=== PATIENT | male | born 1970 | race Two or more races ===

== ENCOUNTER 2018-03-09 13:48 | Inpatient (IN) | payer MEDICARE ==
--- NOTE | 2018-03-09 15:51 | ED ---
Psych HPI - General Source: patient, RN notes reviewed Mode of arrival: ambulatory Limitations: no limitations <Chris Flood - Last Filed: 03/09/18 15:50> <Renan Smith - Last Filed: 03/09/18 16:00> - General Chief Complaint: Psychiatric Symptoms Stated Complaint: Mental health eval Time Seen by Provider: 03/09/18 14:30 - History of Present Illness Initial Comments: 47-year-old male presents emergency department for psychiatric evaluation. Patient states she is depressed and suicidal. Patient states this has been going on for a while. Patient denies any illicit drug use or alcohol abuse. Patient has not seen a psychiatrist recently. Patient denies any physical complaints. Patient denies any nausea and diarrhea constipation no fever no chills no URI symptoms no chest pain or shortness breath. (Chris Flood) - Related Data Home Medications Medication Instructions Recorded Confirmed No Known Home Medications 03/09/18 03/09/18 Allergies Allergy/AdvReac Type Severity Reaction Status Date / Time No Known Allergies Allergy Verified 03/09/18 15:46 Review of Systems ROS Other: All systems not noted in ROS Statement are negative. <Chris Flood - Last Filed: 03/09/18 15:50> ROS Other: All systems not noted in ROS Statement are negative. <Renan Smith - Last Filed: 03/09/18 16:00> ROS Statement: Those systems with pertinent positive or pertinent negative responses have been documented in the HPI. Past Medical History Past Medical History: No Reported History History of Any Multi-Drug Resistant Organisms: MRSA Date of last positivie culture/infection: 2005 Past Surgical History: Back Surgery, Tonsillectomy Past Psychological History: Depression Smoking Status: Never smoker Past Alcohol Use History: Daily Past Drug Use History: Marijuana <Chris Flood - Last Filed: 03/09/18 15:50> General Exam Limitations: no limitations General appearance: alert, in no apparent distress Head exam: Present: atraumatic, normocephalic, normal inspection Neck exam: Present: normal inspection. Absent: tenderness, meningismus, lymphadenopathy Respiratory exam: Present: normal lung sounds bilaterally. Absent: respiratory distress, wheezes, rales, rhonchi, stridor Cardiovascular Exam: Present: regular rate, normal rhythm, normal heart sounds. Absent: systolic murmur, diastolic murmur, rubs, gallop, clicks GI/Abdominal exam: Present: soft, normal bowel sounds. Absent: distended, tenderness, guarding, rebound, rigid Neurological exam: Present: alert, oriented X3, CN II-XII intact Psychiatric exam: Present: normal affect, normal mood Skin exam: Present: warm, dry, intact, normal color. Absent: rash <Chris Flood - Last Filed: 03/09/18 15:50> Course <Chris Flood - Last Filed: 03/09/18 15:50> <Renan Smith - Last Filed: 03/09/18 16:00> Vital Signs 03/09/18 14:17 Temperature 98.3 F Pulse Rate 95 Respiratory 18 Rate Blood Pressure 163/95 O2 Sat by Pulse 97 Oximetry - Reevaluation(s) Reevaluation #1: 03/09/18 16:00 Patient was evaluated by the psychiatric service and will be admitted for inpatient care for major depression. (Renan Smith) Disposition <Chris Flood - Last Filed: 03/09/18 15:50> <Renan Smith - Last Filed: 03/09/18 16:00> Clinical Impression: Major depression Disposition: TRANSFER TO PSYCH HOSP/UNIT Condition: Stable Referrals: Christopher Lea MD [Primary Care Provider] - 1-2 days
[2018-03-09] MEDS ORDERED: ACETAMINOPHEN TAB 325 MG TAB PO PRN (16:04)
[2018-03-09] MEDS ORDERED: MAGNESIUM HYDROXIDE 2,400 MG/10 ML CUP PO PRN (16:04)
[2018-03-09] MEDS ORDERED: ZIPRASIDONE 20 MG VIAL IM PRN (16:04)
[2018-03-09] MEDS ORDERED: MAG HYDROX/AL HYDROX/SIMETH 30 ML CUP PO PRN (16:04)
[2018-03-09] MEDS ORDERED: LORazepam 1 MG TAB PO PRN (16:04)
[2018-03-09 16:10] LABS: Amphetamine Screen,Urine Not Detected (NotDetected); Barbiturate Screen,Urine Not Detected (NotDetected); Benzodiazepines Screen,Urine Not Detected (NotDetected); Cocaine Screen,Urine Not Detected (NotDetected); Methadone Screen, Urine Not Detected (NotDetected); Opiate Screen,Urine Not Detected (NotDetected); Oxycodone Screen, Urine Not Detected (NotDetected); Phencyclidine Screen,Urine Not Detected (NotDetected); Tricyclic Antidepressant,Urine Not Detected (NotDetected); Urn Cannabinoid Scrn Detected (NotDetected)
[2018-03-09 17:20] VITALS: BMI 21.9
--- NOTE | 2018-03-09 18:19 | P.MDCNMH ---
History of Present Illness H&P Date: 03/09/18 Chief Complaint: Medical management 47-year-old male with PMH of discectomy at the L4 L5 S1 spine presents to the ED for severe depression and suicidal ideations. Patient reports chronic lower back pain, associated with his discectomy when he fell off a roof at age 18. He has undergone surgery and placement of an internal stimulator in the past. He does complain of numbness and tingling over the left lateral lower extremity. Patient states that he was initially addicted to opiates, but has weaned himself off. Pain is currently 5 out of 10 in severity. Patient reports drinking alcohol daily and smoking marijuana to control his pain. He does report drinking daily. Patient reports drinking a six pack of beer with 2 shots of liquor daily. Patient states his last drink was yesterday night, had one beer. Patient denies any withdrawal symptoms at this time. Patient denies headaches, lower extremity edema, vomiting, fever, chills, cough , chest pain, shortness of breath, palpitations, changes in bowel habits. Patient reports no changes in appetite or weight. He does however complain of chronic headaches, frontal, described as shooting and point form. He also complains of urinary frequency, but attributes them to his prostate issue. Review of Systems All systems: negative Past Medical History Past Medical History: No Reported History History of Any Multi-Drug Resistant Organisms: MRSA Date of last positivie culture/infection: 2005 MDRO Source:: hand Past Surgical History: Back Surgery, Tonsillectomy Past Psychological History: Depression Smoking Status: Never smoker Past Alcohol Use History: Daily Past Drug Use History: Marijuana Medications and Allergies Home Medications Medication Instructions Recorded Confirmed Type No Known Home Medications 03/09/18 03/09/18 History Allergies Allergy/AdvReac Type Severity Reaction Status Date / Time No Known Allergies Allergy Verified 03/09/18 17:32 Physical Exam Vitals: Vital Signs Temp Pulse Pulse Resp BP BP Pulse Ox 03/09/18 17:14 100.0 F H 03/09/18 17:02 100.0 F H 63 16 130/76 03/09/18 14:17 98.3 F 95 18 163/95 97 Intake and Output 03/09/18 03/09/18 03/09/18 06:59 14:59 22:59 Other: Weight 72.575 kg 69.4 kg General: [non toxic], [no distress], [appears at stated age] Derm: [warm], [dry] Head: [atraumatic], [normocephalic], [symmetric] Eyes: [EOMI], [no lid lag], [anicteric sclera] Mouth: [no lip lesion], [mucus membranes moist] Cardiovascular: [S1S2 reg], [no murmur], [positive DP pulse bilateral] Lungs: [CTA bilateral], [no rhonchi, no rales] , [no accessory muscle use] Abdominal: [soft], [ nontender to palpation], [no guarding], [no appreciable organomegaly] Ext: [no gross muscle atrophy], [no edema], [no contractures] Neuro: [Decreased sensation to touch over the left lateral foot and calf] Psych: [Alert], [oriented], [appropriate affect] Cranial Nerve Examination - Cranial Nerves Cranial Nerve II- Optic: Intact Cranial Nerve III- Oculomotor: Intact Cranial Nerve IV- Trochlear: Intact Cranial Nerve V- Trigeminal: Intact Cranial Nerve - Abducens: Intact Cranial Nerve VII- Facial: Intact Cranial Nerve VIII- Auditory: Intact Cranial Nerve IX- Glossopharyngeal: Intact Cranial Nerve X- Vagus: Intact Cranial Nerve XI- Accessory: Intact Cranial Nerve XII- Hypoglossal: Intact Results Labs: Abnormal Lab Results - Last 24 Hours (Table) 03/09/18 Range/Units 15:54 U Marijuana (THC) Screen Detected H (NotDetected) Assessment and Plan Assessment: Assessment and Plan 1. Lower back pain: s/p L4L5S1 discectomy. Pain management with Tylenol PRN. Will need adequate primary care follow up. 2. EtOH abuse: Appears to be heavy drinker with last drink yesterday. CIWA is negative during H&P. Ativan 1 mg PO TID PRN for agitation. CIWA protocol. MVI 1 tab PO QD, Folic acid 1 mg PO QD and Thiamine 100 mg PO QD. CIWA protocol. 3. Depression and Suicidal ideations: Management as per Psychiatry. Thank you for the consult. Please call with any additional questions.
[2018-03-10] MEDS ORDERED: NICOTINE 14MG/24HR PATCH TRANSDERM SCH (09:00)
--- NOTE | 2018-03-10 10:19 | P.HP ---
Psychiatric H&P - . H&P Date: 03/10/18 History & Physical: Allergies Allergy/AdvReac Type Severity Reaction Status Date / Time No Known Allergies Allergy Verified 03/09/18 17:32 Vital Signs Temp 97.5 F L 03/10/18 06:42 Pulse 86 03/10/18 06:42 Resp 16 03/10/18 06:42 BP 139/78 03/10/18 06:42 Pulse Ox 96 03/09/18 21:38 Intake & Output 03/09/18 03/10/18 03/10/18 18:59 06:59 18:59 Weight 69.4 kg Laboratory Last Values Urine Opiates Screen Not Detected (NotDetected) 03/09/18 15:54 Ur Oxycodone Screen Not Detected (NotDetected) 03/09/18 15:54 Urine Methadone Screen Not Detected (NotDetected) 03/09/18 15:54 Ur Propoxyphene Screen Not Detected (NotDetected) 03/09/18 15:54 Ur Barbiturates Screen Not Detected (NotDetected) 03/09/18 15:54 U Tricyclic Antidepress Not Detected (NotDetected) 03/09/18 15:54 Ur Phencyclidine Scrn Not Detected (NotDetected) 03/09/18 15:54 Ur Amphetamines Screen Not Detected (NotDetected) 03/09/18 15:54 U Methamphetamines Scrn Not Detected (NotDetected) 03/09/18 15:54 U Benzodiazepines Scrn Not Detected (NotDetected) 03/09/18 15:54 Urine Cocaine Screen Not Detected (NotDetected) 03/09/18 15:54 U Marijuana (THC) Screen Detected (NotDetected) H 03/09/18 15:54 Assessment and Plan Assessment: Chief Complaint: Psychiatric Symptoms Stated Complaint: Mental health eval Time Seen by Provider: 03/10/2018 - History of Present Illness Initial Comments: 47-year-old male presents emergency department for psychiatric evaluation. Patient states she is depressed and suicidal. Patient states this has been going on for a while. Patient denies any illicit drug use or alcohol abuse. Patient has not seen a psychiatrist recently. Patient denies any physical complaints. Patient denies any nausea and diarrhea constipation no fever no chills no URI symptoms no chest pain or shortness breath. - Related Data Home Medications Medication Instructions Recorded Confirmed No Known Home Medications 03/09/18 03/09/18 Allergies Allergy/AdvReac Type Severity Reaction Status Date / Time No Known Allergies Allergy Verified 03/09/18 15:46 Past Medical History Past Medical History: No Reported History History of Any Multi-Drug Resistant Organisms: MRSA-inflammed- on buttocks Date of last positivie culture/infection: 2005 Past Surgical History: Back Surgery, Tonsillectomy Past Psychological History: Depression Smoking Status: Never smoker Past Alcohol Use History: Daily Past Drug Use History: Marijuana daily Family history: mother-depressed; dad-dementia; older sister raped by father- PTSD without children; is a functional alcoholic and depression at times ( 12 years); 2 other wifes No college and did not finish high school-10 th grade([employer]) Musculoskeletal Examination - Abnormal/Involuntary Movements: [none Strength: [greater than antigravity (greater than/equal to 3/5) in all extremities Muscle Tone: [no impairment Gait: [grossly normal Station: [grossly normal Mental Status Examination - General Appearance: [ casual, appears stated age Speech/Language: [rapid, hesitant, halting, expressive,soft] Attitude/Behavior: [cooperative Mood: [depressed, anxious, irritable, fearful, hopelessness Affect: [ flat, incongruent, blunted constricted] Orientation: [time, person, place situation] Thought Content: [obsessions Risk Factors: [he is suicidal (ideations, plan) Perception: [wnl, paranoia Thought Processes: [concrete, circumstantial, tangential] Concentration/Attention Span: [wnl] [Per observation and interview with the patient] Recent Memory: [wnl,] Remote Memory: [wnl, ] [past events, as related history] Intelligence: [below average] [based on history, based on vocabulary, syntax, grammar, and content] Judgement: [fair] [per patient's behavior/history of present illness] Insight: [fair] [understanding severity of illness/history of present illness] Admitting Diagnosis: [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] Patient Strengths - Personal Skills: [Wanting to go to work] Achievements: [Did not finish high school no college] Steady employment/financial stability: [Currently is on social security disability for his back] Housing stability: [He is and lives in a house] Able to vocalize needs: [Able to express his needs for normalcy and less depression and anxiety] Motivation, determination, readiness for change: [He appears motivated and wants to get well and find a job] Setting and pursuing goals, hopes, dreams, aspirations: [Wants to work] Resources - social, interpersonal, monetary: [SSD] Interpersonal relationships and supports available - family, relatives, friends : [] Patient Limitations: [medication, non-compliance, pathological/unsupported environment, intellectual impairment, complicated medical illness, Initial Plan of Care: [He is admitted on a voluntary basis and placed on 15 minute checks due to his suicidal thoughts and his severe depression. He'll be evaluated by medicine, psychiatry, social work, nursing staff and occupational therapy. He will be teamed in a multidisciplinary team on a daily basis for evaluation, treatment, progress towards resolution of symptoms and disposition. He stated that 2 days ago was his last drink of alcohol and will treat him with Librium 10 mg 3 times a day, Catapres 0.1 mg 3 times a day, risperidone 0.25 mg by mouth twice a day for his paranoia. On 03/11/2018 will start antidepressant but today treating his alcohol withdrawal.] Estimated Length of Stay: [7 days] Initial Discharge Plan: [[place], referred to therapist Prognosis: [ guarded] Justification for Inpatient Hospitalization - [ agitation, anxiety, depression resulting in significant loss of functioning.] [Dangerous to self with need for controlled environment.] [Emotional or behavioral conditions and complications requiring 24 hour medical and nursing care.] [Need for special drug therapy, or other therapeutic program requiring continuous hospitalization.] [Failure of social or occupational functioning.] [Inability to meet basic life and health needs.] [ (1) Major depressive disorder without psychotic features Current Visit: Yes Status: Acute Code(s): F32.9 - MAJOR DEPRESSIVE DISORDER , SINGLE EPISODE, UNSPECIFIED SNOMED Code(s): 563789373 Time with Patient: Greater than 30
[2018-03-10 11:20] LABS: Basophils # (A) 0.1 k/uL (0-0.2); Basophils % (A) 1 %; Eosinophils # (A) 0.5 k/uL (0-0.7); Eosinophils % (A) 6 %; HCT 46.2 % (39.0-53.0); HGB 14.5 gm/dL (13.0-17.5); Lymphocytes # (A) 2.3 k/uL (1.0-4.8); Lymphocytes % (A) 28 %; MCH 27.6 pg (25.0-35.0); MCHC 31.4 g/dL (31.0-37.0); MCV 87.8 fL (80.0-100.0); Mean Platelet Volume 7.6; Monocytes # (A) 0.6 k/uL (0-1.0); Monocytes % (A) 7 %; Neutrophils # (A) 4.5 k/uL (1.3-7.7); Neutrophils % (A) 56 %; Platelet Count 279 k/uL (150-450); RBC 5.26 m/uL (4.30-5.90); WBC 8.1 k/uL (3.8-10.6)
[2018-03-10 11:29] LABS: ALT 27 U/L (21-72); AST 30 U/L (17-59); Albumin 5.2 g/dL (3.5-5.0); Alkaline Phosphatase 80 U/L (38-126); Anion Gap 13 mmol/L; Blood Urea Nitrogen 11 mg/dL (9-20); Calcium 10.4 mg/dL (8.4-10.2); Carbon Dioxide 25 mmol/L (22-30); Chloride 103 mmol/L (98-107); Cholesterol 229 mg/dL (<200); Glucose 102 mg/dL (74-99); HDL Cholesterol 102 mg/dL (40-60); LDL Cholesterol,Calculated 110 mg/dL (0-99); Potassium 4.5 mmol/L (3.5-5.1); Sodium 141 mmol/L (137-145); Total Bilirubin 1.1 mg/dL (0.2-1.3); Total Protein 8.4 g/dL (6.3-8.2); Triglycerides 83 mg/dL (<150)
[2018-03-10] MEDS: MULTIVITAMINS, THERA 1 EACH TAB PO SCH (13:16)
[2018-03-10] MEDS: FOLIC ACID 1 MG TAB PO SCH (13:16)
[2018-03-10] MEDS: THIAMINE 100 MG TAB PO SCH (13:16)
[2018-03-10] MEDS: cloNIDine HCL 0.1 MG TAB PO SCH ×2 (15:55→20:45)
[2018-03-10 17:18] LABS: Hemoglobin A1C 5.4 % (4.0-6.0)
--- NOTE | 2018-03-10 17:40 | P.PN ---
Subjective Progress Note Date: 03/10/18 Principal diagnosis: Chest pain Patient was seen and examined. Patient reports chest pain that started after taking Librium and clonidine. Patient states that he was sitting down reading his book when he suddenly experienced chest pain. Chest pain is left-sided, pressure-like in nature. Patient states that the pain is constant, unable to determine the severity. Pain is nonradiating. Pain is not alleviated or aggravated by anything. There is no changes with inspiration or with movement. Patient states that his chest pain was associated with palpitations. He denies any headaches, lower extremity edema, nausea, vomiting, fever, cough, shortness of breath, dizziness, changes in urination or bowel habits. Objective - Vital Signs Vital signs: Vital Signs Temp 97.5 F L 03/10/18 06:42 Pulse 74 03/10/18 16:55 Resp 16 03/10/18 16:55 BP 129/89 03/10/18 16:55 Pulse Ox 96 03/09/18 21:38 Intake & Output 03/09/18 03/10/18 03/10/18 18:59 06:59 18:59 Weight 69.4 kg 69.4 kg - Exam General: [non toxic], [no distress], [appears at stated age] Derm: [warm], [dry] Head: [atraumatic], [normocephalic], [symmetric] Eyes: [EOMI], [no lid lag], [anicteric sclera] Mouth: [no lip lesion], [mucus membranes moist] Cardiovascular: [S1S2 reg], [no murmur], [positive DP pulse bilateral] Lungs: [CTA bilateral], [no rhonchi, no rales] , [no accessory muscle use] Ext: [no gross muscle atrophy], [no edema], [no contractures] Psych: [Alert], [oriented], [appropriate affect] - Labs CBC & Chem 7: 03/10/18 10:22 03/10/18 10:22 Labs: Abnormal Lab Results - Last 24 Hours (Table) 03/10/18 Range/Units 10:22 Glucose 102 H (74-99) mg/dL Calcium 10.4 H (8.4-10.2) mg/dL Total Protein 8.4 H (6.3-8.2) g/dL Albumin 5.2 H (3.5-5.0) g/dL Cholesterol 229 H (<200) mg/dL LDL Cholesterol, Calc 110 H (0-99) mg/dL HDL Cholesterol 102 H (40-60) mg/dL Assessment and Plan Assessment: Assessment and Plan 1. Chest pain: Unknown etiology. Non pleuritic non tender to palpation, appears atypical for ACS however. Vital signs are stable. Pain management with Tylenol. Start ASA 81 mg PO QD. Will trend 2 Trop/EKG to r/o ACS. 2. Lower back pain: s/p L4L5S1 discectomy. Pain management with Tylenol PRN. Will need adequate primary care follow up. 3. EtOH abuse: Appears to be heavy drinker with last drink yesterday. CIWA is negative during H&P. Ativan 1 mg PO TID PRN for agitation and Librium 10 mg PO TID scheduled. CIWA protocol. MVI 1 tab PO QD, Folic acid 1 mg PO QD and Thiamine 100 mg PO QD. CIWA protocol. 4. Depression and Suicidal ideations: Management as per Psychiatry. Plans to rule out acute coronary syndrome. Stat EKG and troponin ordered.
[2018-03-10] MEDS: ASPIRIN 81 MG PO SCH (18:42)
[2018-03-10] MEDS: risperiDONE 0.25 MG TAB PO SCH (20:44)
[2018-03-11] MEDS: cloNIDine HCL 0.1 MG TAB PO SCH ×3 (08:34→20:55)
[2018-03-11] MEDS: ASPIRIN 81 MG PO SCH (08:34)
[2018-03-11] MEDS: risperiDONE 0.25 MG TAB PO SCH ×2 (08:34→20:55)
--- NOTE | 2018-03-11 10:07 | P.PN ---
Subjective Progress Note Date: 03/11/18 Principal diagnosis: major depressive disorder-severe I felt shaky and still depressed 10/22; woke up grouchy Objective - Vital Signs Vital signs: Vital Signs Temp 97.7 F 03/11/18 06:42 Pulse 91 03/11/18 08:31 Resp 16 03/11/18 08:31 BP 123/79 03/11/18 08:31 Pulse Ox 96 03/09/18 21:38 Intake & Output 03/10/18 03/11/18 03/11/18 18:59 06:59 18:59 Weight 69.4 kg - Labs CBC & Chem 7: 03/10/18 10:22 03/10/18 10:22 Labs: Abnormal Lab Results - Last 24 Hours (Table) 03/10/18 Range/Units 10:22 Glucose 102 H (74-99) mg/dL Calcium 10.4 H (8.4-10.2) mg/dL Total Protein 8.4 H (6.3-8.2) g/dL Albumin 5.2 H (3.5-5.0) g/dL Cholesterol 229 H (<200) mg/dL LDL Cholesterol, Calc 110 H (0-99) mg/dL HDL Cholesterol 102 H (40-60) mg/dL Assessment and Plan Assessment: Chief Complaint: Psychiatric Symptoms Stated Complaint: Mental health eval Time Seen by Provider: 03/10/2018 - History of Present Illness Initial Comments: 47-year-old male presents emergency department for psychiatric evaluation. Patient states she is depressed and suicidal. Patient states this has been going on for a while. Patient denies any illicit drug use or alcohol abuse. Patient has not seen a psychiatrist recently. Patient denies any physical complaints. Patient denies any nausea and diarrhea constipation no fever no chills no URI symptoms no chest pain or shortness breath. - Related Data Home Medications Medication Instructions Recorded Confirmed No Known Home Medications 03/09/18 03/09/18 Allergies Allergy/AdvReac Type Severity Reaction Status Date / Time No Known Allergies Allergy Verified 03/09/18 15:46 Past Medical History Past Medical History: No Reported History History of Any Multi-Drug Resistant Organisms: MRSA-inflammed- on buttocks Date of last positivie culture/infection: 2005 Past Surgical History: Back Surgery, Tonsillectomy Past Psychological History: Depression Smoking Status: Never smoker Past Alcohol Use History: Daily Past Drug Use History: Marijuana daily Family history: mother-depressed; dad-dementia; older sister raped by father- PTSD without children; is a functional alcoholic and depression at times ( 12 years); 2 other wifes No college and did not finish high school-10 th grade(long term-[employer]) Musculoskeletal Examination - Abnormal/Involuntary Movements: [none Strength: [greater than antigravity (greater than/equal to 3/5) in all extremities Muscle Tone: [no impairment Gait: [grossly normal Station: [grossly normal Mental Status Examination - General Appearance: [ casual, appears stated age Speech/Language: [rapid, hesitant, halting, expressive,soft] Attitude/Behavior: [cooperative Mood: [depressed 8 out of 10, anxious, 10, irritable, extremely fearful, feels hopelessness Affect: [ flat, incongruent, blunted constricted] Orientation: [time, person, place situation] Thought Content: [obsessions Risk Factors: [he is suicidal (ideations, plan) Perception: [wnl, paranoia Thought Processes: [concrete, circumstantial, tangential] Concentration/Attention Span: [wnl] [Per observation and interview with the patient] Recent Memory: [wnl,] Remote Memory: [wnl, ] [past events, as related history] Intelligence: [below average] [based on history, based on vocabulary, syntax, grammar, and content] Judgement: [fair] [per patient's behavior/history of present illness] Insight: [fair] [understanding severity of illness/history of present illness] Admitting Diagnosis: [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] Patient Strengths - Personal Skills: [Wanting to go to work] Achievements: [Did not finish high school no college] Steady employment/financial stability: [Currently is on social security disability for his back] Housing stability: [He is and lives in a house] Able to vocalize needs: [Able to express his needs for normalcy and less depression and anxiety] Motivation, determination, readiness for change: [He appears motivated and wants to get well and find a job] Setting and pursuing goals, hopes, dreams, aspirations: [Wants to work] Resources - social, interpersonal, monetary: [SSD] Interpersonal relationships and supports available - family, relatives, friends : [] Patient Limitations: [medication, non-compliance, pathological/unsupported environment, intellectual impairment, complicated medical illness, Initial Plan of Care: [He is admitted on a voluntary basis and placed on 15 minute checks due to his suicidal thoughts and his severe depression. He'll be evaluated by medicine, psychiatry, social work, nursing staff and occupational therapy. He will be teamed in a multidisciplinary team on a daily basis for evaluation, treatment, progress towards resolution of symptoms and disposition. He stated that 2 days ago was his last drink of alcohol and will treat him with Librium 10 mg 3 times a day, Catapres 0.1 mg 3 times a day, risperidone 0.25 mg by mouth twice a day for his paranoia. On 03/11/2018 will start antidepressant but today treating his alcohol withdrawal. 03/11/2018 discontinued and Librium and started on Zoloft 50 mg at bedtime.] Estimated Length of Stay: [6 days] Initial Discharge Plan: [home, [facility], referred to therapist Prognosis: [ guarded] Justification for Inpatient Hospitalization - [ agitation, anxiety, depression resulting in significant loss of functioning.] [Dangerous to self with need for controlled environment.] [Emotional or behavioral conditions and complications requiring 24 hour medical and nursing care.] [Need for special drug therapy, or other therapeutic program requiring continuous hospitalization.] [Failure of social or occupational functioning.] [Inability to meet basic life and health needs.] [ (1) Major depressive disorder without psychotic features Current Visit: Yes Status: Acute Code(s): F32.9 - MAJOR DEPRESSIVE DISORDER , SINGLE EPISODE, UNSPECIFIED SNOMED Code(s): 040012704 Time with Patient: Less than 30
[2018-03-11] MEDS: FOLIC ACID 1 MG TAB PO SCH (14:06)
[2018-03-11] MEDS: MULTIVITAMINS, THERA 1 EACH TAB PO SCH (14:06)
[2018-03-11] MEDS: THIAMINE 100 MG TAB PO SCH (14:06)
[2018-03-11] MEDS: SERTRALINE 50 MG TAB PO SCH (20:55)
[2018-03-12] MEDS: cloNIDine HCL 0.1 MG TAB PO SCH ×3 (07:24→20:29)
[2018-03-12] MEDS: ASPIRIN 81 MG PO SCH (07:25)
[2018-03-12] MEDS: risperiDONE 0.25 MG TAB PO SCH ×2 (07:25→20:29)
[2018-03-12] MEDS: THIAMINE 100 MG TAB PO SCH (12:12)
[2018-03-12] MEDS: FOLIC ACID 1 MG TAB PO SCH (12:12)
[2018-03-12] MEDS: MULTIVITAMINS, THERA 1 EACH TAB PO SCH (12:12)
[2018-03-12] MEDS: SERTRALINE 50 MG TAB PO SCH (20:29)
--- NOTE | 2018-03-12 22:13 | PN ---
DATE OF SERVICE: 03/12/2018 PROGRESS NOTE . CHIEF COMPLAINT: The patient was depressed with suicide thoughts. He had significant alcohol use. INTERVAL HISTORY: Patient has been doing fair. He had a quiet evening last night. He slept well. Today he has been up, comes out in the day area. He interacts with others. He attends groups. He has been appropriate in groups. Noted that when I reviewed substance use issues, it was somewhat unclear about specifics. He says that he has had issues with addiction to pain medications, which was a problem from 2003 when he suffered an injury and got started on pain medications. He went off opioids in 2013. He has had significant marijuana use and states that he used marijuana up to this admission , though he is dedicated to not using marijuana any longer. He says that both he and his have alcohol problems. He notes that he felt his drinking was somewhat controlled until about 6 months ago. After that, he started increasing his drinking to the point where he was drinking at least a six-pack of beer a day. He was vague about how much hard liquor he drinks, though suggests that he may drink upwards of a pint a day. He says he has had in the past used crack cocaine, though has been off that. He notes a lot of stress issues in his family. There are significant family psychiatric issues including father and sister who have made suicide attempts and grandfather who committed suicide. He says one of his current problems is that his is working. When she comes home she will drink. He says she drinks in a problematic way, though still is able to hold down a job. He acknowledges that when she drinks it makes it difficult for him to not also get involved in drinking. He was somewhat vague about issues leading up to his thoughts of suicide as part of his admission and he acknowledges struggles he has with his personality. He says he will make a lot of efforts at initiating productive activities, though then he is not able to follow through with any consistency. He will get increasingly distressed over the fact that many projects or efforts he makes simply go by the [place]. He reports that he is doing fairly well since he has been on the unit. He has a better outlook. He says he has not noted significant alcohol withdrawal issues. Vital signs have been stable. He tolerates his psychotropic medications. MENTAL STATUS: Patient gave good eye contact. Psychomotor activity was restless. He answered questions with direct responses. His thoughts were clear, coherent, and goal directed. It was noted that he would often digress and ramble about any number of subjects. His affect was intense. His mood somewhat dysphoric. He seemed moderately distressed. There was no indication of thought disorder. ASSESSMENT: I will continue the current diagnosis and treatment plan. Discussed medication options with the patient. We talked about the need to focus on acute alcohol withdrawal issues as primary factor at this point. The patient states that he feels his medications are stable and that he is not seeing any immediate issues to make any change in medications. We will continue to focus on stabilization and discharge planning. GENESIS / ABHIJEET: [id number] / RAMIRO
[2018-03-13] MEDS: ASPIRIN 81 MG PO SCH (07:49)
[2018-03-13] MEDS: risperiDONE 0.25 MG TAB PO SCH ×2 (07:50→20:53)
[2018-03-13] MEDS: cloNIDine HCL 0.1 MG TAB PO SCH ×3 (07:50→20:50)
[2018-03-13] MEDS: MULTIVITAMINS, THERA 1 EACH TAB PO SCH (12:02)
[2018-03-13] MEDS: FOLIC ACID 1 MG TAB PO SCH (12:02)
[2018-03-13] MEDS: THIAMINE 100 MG TAB PO SCH (12:02)
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
[2018-03-13] MEDS: SERTRALINE 50 MG TAB PO SCH (20:50)
[2018-03-14 05:55] VITALS: RESP 14; TEMP 97.6
[2018-03-14] MEDS: ASPIRIN 81 MG PO SCH (08:22)
[2018-03-14] MEDS: cloNIDine HCL 0.1 MG TAB PO SCH (08:22)
[2018-03-14] MEDS: risperiDONE 0.25 MG TAB PO SCH (08:23)
[2018-03-14 09:28] VITALS: BP 129/87; PULSE 112
[2018-03-14] MEDS: THIAMINE 100 MG TAB PO SCH (10:58)
[2018-03-14] MEDS: FOLIC ACID 1 MG TAB PO SCH (10:58)
[2018-03-14] MEDS: MULTIVITAMINS, THERA 1 EACH TAB PO SCH (10:58)
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
== END 2018-03-14 12:31 | disposition home or self-care (01) | DRG 885 ==
LOC: EC 13:48 → 3MHU 16:02
PROVIDERS: ADMIT Psychiatry & Neurology Psychiatry; ATTEND Psychiatry & Neurology Psychiatry
DX: F33.2 Major depressive disorder, recurrent severe without psychotic features (principal); F10.239 Alcohol dependence with withdrawal, unspecified; R45.851 Suicidal ideations; F12.23 Cannabis dependence with withdrawal; F60.89 Other specific personality disorders; F41.0 Panic disorder [episodic paroxysmal anxiety]; M54.5 Low back pain; R07.89 Other chest pain; R00.1 Bradycardia, unspecified; Z91.19 Patient's noncompliance with other medical treatment and regimen; Z86.14 Personal history of Methicillin resistant Staphylococcus aureus infection; Z81.8 Family history of other mental and behavioral disorders
CPT/HCPCS: 80053; 80061; 80306; 82075; 83036; 84443; 84484; 85025; 99285